=== PATIENT | female | born 1970 | race Caucasian/White ===

== ENCOUNTER 2017-06-11 21:49 | Emergency (ER) | payer SELFPAY ==
[2017-06-11 22:04] VITALS: BP 134/64; BMI 38.6
[2017-06-12] MEDS ORDERED: DUONEB 0.5 MG/3 MG NEB ONE (01:12)
--- NOTE | 2017-06-12 01:16 | DR.GENAD ---
HPI - PCP Primary Care Physician: Pushpa Owens - Complaint/Symptoms Chief Complaint Doctors Comments: Patient is complaining of cold, cough, nasal congestion, wheezing, SOB with sore throat and increased mucous production for the past 3-4 days getting worst today. States she has been taking mucinex without improvement. States she has been swimming in mucous and it seems to be caught in her chest and will not come up. States she is a patient of Dr. Owens and she did not take the flu shot this year. State she has been having SOB but denies chest pain. Chief Complaint:: Patient stated that "I have had 3 hours of sleep in the past 2 days and I am having to take shallow breaths because I feel like I am swimming in mucus from couging so much." Patient also c/o severe Headache Self Treatment fo Chief Complaint: Mucinex Max DM, Vicks Vapor Rub - Nurses notes reviewed Nurses Notes Review: Yes - Source History Provided: Patient - Mode of Arrival Mode of Arrival: Ambulatory - Timing Onset of Chief Complaint: 06/09/17 Came on: Gradually - Duration Duration: Intermittent How lon Duration: Days - Location Location: cough with increased congestion - Severity Severity: Mild - Modifying Factors Worsens:: coughing Improves:: nothing PMH - PMH Past Medical History: No Past Surgical History: Yes Surgical History: Other Past Surgical History Comment: Breast Reduction, Tubaligation - Family History History of Family Medical Conditions: Yes Family Medical History: Hypertension Family Medical History Comment: Hypothyroidism, Hypotension - Social History Does patient currently use any type of tobacco product: Yes Have you used tobacco products in the last 12 months: Yes Type of Tobacco Use: Cigarettes Alcohol Use: None Do you use any recreational Drugs:: No Lives With: Family Lives Where: Home - infectious screening In the last 2 months have you had wt loss of >10#?: NO Have you had fever, night sweats or hemotysis?: Yes Have you traveled outside the country in the last 6 months?: No Isolation: Standard ROS - Review of Systems Constitutional: No Symptoms Reported, Loss of Appetite. negative: See HPI, Chills, Diaphoresis, Fever, Malaise, Weakness, Irritable, Fatigue, Other Eyes: No Symptoms Reported ENTM: No Symptoms Reported, Nose Discharge, Nose Congestion, Throat Pain. negative: See HPI, Ear Pain, Ear Discharge, Pulling on Ears, Hearing Loss, Nose Pain, Epistaxis, Mouth Pain, Mouth Swelling, Loose Teeth, Drooling, Throat Swelling, Ear Foreign Body Respiratoy: No Symptoms Reported, Non-Productive Cough, Short of Breath, Wheezing. negative: See HPI, Productive Cough, Moist Cough, Dry Cough, Hacking Cough, Barking Cough, Brassy Cough, Orthopnea, Stridor, Hemoptysis, Other Cardiovascular: No Symptoms Reported. negative: See HPI, Chest Pain, Edema, Palpitations, Syncope, Cyanosis, Skin Mottling, Other Gastrointestinal/Abdominal: No Symptoms Reported. negative: See HPI, Abdominal Pain, Constipation, Diarrhea, Nausea, Vomiting, Food Intolerance, Other Genitourinary: No Symptoms Reported. negative: See HPI, Discharge, Dysuria, Frequency, Hematuria, Pain, Bleeding, Other Neurological: No Symptoms Reported. negative: See HPI, Anxiety, Depressed, Emotional Problems, Headache, Numbness, Paresthesia, Pre-existing Deficit, Seizure, Tingling, Tremors, Weakness, Dizziness, Problems Walking, Speech Problem, Other Musculoskeletal: No Symptoms Reported Integumentary: No Symptoms Reported. negative: See HPI, Change in Color, Change in Hair/Nails, Dryness, Lesions, Lumps, Rash, Itching, Wound, Bruises, Juandice, Other Hematologic/Lymphatic: No Symptoms Reported. negative: See HPI, Anemia, Blood Clots, Easy Bleeding, Easy Bruising, Swollen Glands, Lymphadenopathy, Other Endocrine: No Symptoms Reported Psychiatric: No Symptoms Reported. negative: See HPI, Anxiety, Depression, Hallucinations, Excessive crying, Suicidal, Other PE - Vital Signs Vitals: Temperature 97.6 F Pulse Rate 81 Respiratory Rate 18 Blood Pressure 134/64 O2 Sat by Pulse Oximetry 97 - General Limitations: No Limitations General Appearance: Alert, In Distress (mild) - Head Head Exam: Normal Inspection, Atraumatic, Normocephalic - Eyes Eye exam: Normal Appearance, PERRL, EOMI. negative: Scleral Icterus, Conjunctival Injection, Nystagmus, Miosis, Mydrasis, Periorbital Swelling, Periorbital Tenderness, Other - ENT ENT Exam: Normal Exam, Normal Oropharynx, Normal External Ear Exam, Mucous Membranes Moist, TM's Normal Bilaterally (nasal congestion with purulent nasal secretions; edematous) External Ear Exam: Normal External Inspection TM/Canal Exam: Bilateral Normal Nose Exam: Normal Nose Exam Mouth Exam: Normal Inspection. negative: Drooling, Trismus, Lip Swelling, Tongue Elevation, Tongue Swelling, Laceration, Other Throat Exam: Normal Inspection - Neck Neck Exam: Normal Inspection, Full ROM, Trachea Midline. negative: Tenderness, Meningismus, Lymphadenopathy, Thyromegaly, Other - Chest Chest Inspection: Normal Inspection, Symmetric Chest Wall Rise - Respiratory Respiratory Exam: Normal Lung Sounds Bilat, Prolonged Expiratory Phase Respiratory Exam: Bilateral Clear to Auscultation, Bilateral Rhonchi ( intrmittent) - Cardiovascular Cardiovascular Exam: Regular Rate, Normal Rhythm, Normal Heart Sounds - Abdominal Exam Abdominal Exam: Normal Inspection, Normal Bowel Sounds, Soft. negative: Distention, Tenderness, Guarding, Rebound, Rigidity, Dimnished Bowel Sounds, Hyperactive Bowel Sounds, Hypoactive Bowel Sounds, Organomegaly, Trauma, Incision, Ascites, Mass, Bruit, Pulsatile Mass, Hernia, Other Abdominal Tenderness: negative: RUQ, RLQ, LUQ, LLQ, Epigastrium, Suprapubic, Diffuse, Mild, Moderate, Severe, Other - Extremities Extremities Exam: Normal Inspection, Full ROM, Normal Capillary Refill. negative: Tenderness, Edema, Joint Swelling, Calf Tenderness, Other - Back Back Exam: Normal Inspection, Full ROM. negative: Tenderness, (R) CVA Tenderness, (L) CVA Tenderness, Muscle Spasm, Paraspinal Tenderness, Vertebral Tenderness, Rashes, (R) Sciatic Notch Tenderness, (L) Sciatic Notch Tendern, (R ) Straight Leg Raise, (L) Straight Leg Raise, Other - Neurologic Neurological Exam: Alert, Oriented X3, CN II-XII Intact, Normal Gait, Reflexes Normal - Psychiatric Psychiatric Exam: Normal Affect, Normal Mood - Skin Skin Exam: Warm, Dry, Intact, Normal Color ROR - Labs Reviewed Laboratory Results Reviewed?: Yes (all labs and x-ray results reviewed and discussed with aptient) Laboratory: Influenza Type A (PCR) Negative (NEGATIVE) 06/12/17 02:19 Influenza Type B (PCR) Negative (NEGATIVE) 06/12/17 02:19 S. pyogenes (TEM-PCR) Not detected (NOT DETECT) 06/12/17 02:19 - XRAY XRAY Interpreted by: Radiologist ( Increased central peribroncial thickening nonspecific suggest acute bronchitis) - Diagnosis Discharge Problem: Bronchospasm Bronchitis, acute Qualifiers: Bronchitis organism: other organism Qualified Code(s): J20.8 - Acute bronchitis due to other specified organisms Sinusitis, acute Qualifiers: Sinusitis location: maxillary - Discharge Plan Disposition: HOME, SELF-CARE Condition: Stable Prescriptions: Albuterol Sulfate [Proair Hfa] 8.5 gm IH Q4-6H PRN #1 [id number] PRN Reason: Fluticasone Nasal [place] [FLONASE NASAL SPRAY *] 2 sprays ENOSTRIL DAILY #1 each Levofloxacin [LEVAQUIN TAB 500 MG *] 500 mg PO Q24H #10 tab Montelukast Sodium [Singulair Tab 10 mg] 10 mg PO HS #30 tab - Follow ups/Referrals Follow ups/Referrals: PUSHPA WOENS [Primary Care Provider] - 3 days - Instructions Instructions: Acute Bronchitis, Sinusitis, Adult, [id number], Bronchospasm, Adult
[2017-06-12] MEDS ORDERED: DUONEB 0.5 MG/3 MG ONE (01:20)
[2017-06-12] MEDS ORDERED: TORADOL 60 MG VIAL IM ONE (02:02)
[2017-06-12] MEDS ORDERED: TORADOL 60 MG VIAL ONE (02:09)
--- NOTE | 2017-06-12 02:27 | RAD ---
PA and lateral Chest Indication: Cough Comparison: None available Findings: The trachea is midline. The cardiac silhouette is unremarkable. Increased central peribronchial thi ckening without focal airspace opacity, pleural effusion or pneumothorax. Incidental note of an acces nadira azygos fissure. The bony thorax is unremarkable. IMPRESSION: 1. N increased central peribronchial thickening is nonspecific however suggest acute bronchitis and/ or viral/atypical pneumonia. No bronchopneumonia. Reported By:
[2017-06-12] MEDS ORDERED: LEVAQUIN TAB 500 MG PO STA (04:26)
== END 2017-06-12 04:39 | disposition home or self-care (01) ==
LOC: ER 22:07
DX: J98.01 Acute bronchospasm (principal); J20.8 Acute bronchitis due to other specified organisms; J01.80 Other acute sinusitis
CPT/HCPCS: 71046; 87502; 87651; 94640; 96372; 99282; 99283; J1885; J7620

== ENCOUNTER 2017-07-25 17:51 | Emergency (ER) | payer SELFPAY ==
[2017-07-25 18:01] VITALS: BP 119/65; BMI 43.7
[2017-07-25] MEDS ORDERED: ROCEPHIN VIAL 1 GM IM ONE (19:13)
[2017-07-25] MEDS ORDERED: ROCEPHIN VIAL 1 GM ONE (19:13)
--- NOTE | 2017-07-25 19:13 | DR.EARACHE ---
HPI - Time Seen Time seen: 19:09 - PCP Primary Care Physician: JOSEPH TORIBIO - Complaint/Symptoms Chief Complaint Doctor Comments: History as stated. onset of left ear pain two days ago, pain is worse. Pain is 10/10, sharp,duratin three days Chief Complaint:: PT C/O LEFT EAR PAIN , THAT STARTED WEDNESDAY AND PT WAS CALLED IN [facility] FOR HER EAR AND IT'S GOTTEN WORSE,,, PT CANNOT PUT HER HEARING AIDS IN AND THERE IS A MODERATATE AMOUNT OF EDEMA TO PTS LEFT ORICLE OF HER ARE.. - Source History Provided: Patient - Mode of arrival Mode of Arrival: Ambulatory - Timing Onset of Chief Complaint: 07/23/17 PMH - PMH Past Medical History: Yes Past Medical History Comment: HEARING AIDS BILATERAL . Past Surgical History: Yes Surgical History: Other Past Surgical History Comment: BREAST REDUCTION, TUBAL. - Family History History of Family Medical Conditions: No Family Medical History: Hypertension - Social History Does patient currently use any type of tobacco product: Yes Have you used tobacco products in the last 12 months: Yes Type of Tobacco Use: Cigarettes How many years tobacco product used: 22 Does any household member use tobacco: No Alcohol Use: None Do you use any recreational Drugs:: No Lives With: Alone, Family Lives Where: Home - infectious screening In the last 2 months have you had wt loss of >10#?: NO Have you had fever, night sweats or hemotysis?: No Have you traveled outside the country in the last 6 months?: No Isolation: Standard ROS - Review of Systems Eyes: No Symptoms Reported ENTM: See HPI (left ear painful), Ear Pain Respiratoy: No Symptoms Reported Cardiovascular: No Symptoms Reported Gastrointestinal/Abdominal: No Symptoms Reported Genitourinary: No Symptoms Reported Neurological: No Symptoms Reported Musculoskeletal: No Symptoms Reported Integumentary: No Symptoms Reported Hematologic/Lymphatic: No Symptoms Reported Endocrine: No Symptoms Reported Psychiatric: No Symptoms Reported All Other Systems: Reviewed and Negative PE - Vitals Vitals: Temperature 98.2 F Pulse Rate 78 Respiratory Rate 20 Blood Pressure 119/65 O2 Sat by Pulse Oximetry 98 - General Limitations: No Limitations General Appearance: Alert, In No Apparent Distress - Head Head Exam: Normal Inspection, Atraumatic - Eyes Eye exam: Normal Appearance, PERRL, EOMI - ENT ENT Exam: Normal Exam. negative: TM's Normal Bilaterally (Left external canal swollen, TM with purulent drainage) External Ear Exam: Normal External Inspection TM/Canal Exam: Bilateral Normal Nose Exam: Normal Nose Exam, Sinus Tenderness Nasal Speculum Exam: Bilateral Normal Mouth Exam: Normal Inspection Teeth Exam: Normal Inspection Throat Exam: Normal Inspection - Neck Neck Exam Focused: Normal Inspection - Chest Chest Inspection: Normal Inspection - Respiratory Respiratory Exam: Normal Lung Sounds Bilat Respiratory Exam: Bilateral Clear to Auscultation - Cardiovascular Cardiovascular Exam: Regular Rate, Normal Rhythm - Abdominal Exam Abdominal Exam: Normal Inspection, Normal Bowel Sounds Abdominal Tenderness: negative: RUQ, RLQ, LUQ, LLQ, Epigastrium, Suprapubic, Diffuse, Mild, Moderate, Severe, Other - Extremities Extremities Exam: Normal Inspection, Full ROM - Back Back Exam: Normal Inspection - Neurological Neurological Exam: Alert, Oriented X3, CN II-XII Intact - Psychiatric Psychiatric Exam: Normal Affect, Normal Mood - Skin Skin Exam: Warm, Dry - Diagnosis Discharge Problem: Otitis media Qualifiers: Otitis media type: suppurative Chronicity: acute Laterality: left Recurrence: not specified as recurrent Spontaneous tympanic membrane rupture: with spontaneous rupture Qualified Code(s): H66.012 - Acute suppurative otitis media with spontaneous rupture of ear drum, left ear - Discharge Plan Condition: Stable - Follow ups/Referrals Follow ups/Referrals: JOSEPH PASTOR [Primary Care Provider] - 3 days - Instructions
[2017-07-25] MEDS ORDERED: NORCO 5/325 MG TAB PO ONE (19:18)
[2017-07-25] MEDS ORDERED: NORCO 5/325 MG TAB ONE (19:22)
== END 2017-07-25 19:49 | disposition home or self-care (01) ==
LOC: ER 18:07
DX: H66.012 Acute suppurative otitis media with spontaneous rupture of ear drum, left ear (principal)
CPT/HCPCS: 96372; 99282; J0696